=== PATIENT | female | born 1955 | race Two or more races ===

== ENCOUNTER 2017-10-17 11:41 | Outpatient (CLI) | payer OTHER ==
[~2017-10-17 11:41] MED LIST: ADULT ASPIRIN81 MG; ANTIVERT25 M1 PO; ASA; ASA81 MG; ASPIR 8181 MG; ATACAND HCT 11 UDTA1 PO; CATAFLAM50 MG PO; ENALAPRIL MALEA10 MG; ENALAPRIL-HCTZ1 TAB; FLEXERIL; FLEXERIL10 MG PO; IOPHEN DM-100 MG/5 M PO; KETO10TA2 PO; LEVSIN0.125 MG PO; MEDROLPACK PO; NASONEX17 GM NS; NEURONTIN600 MG; NEURONTIN800 MG; NORFLEX100MG PO; ORPH100T PO; PLAVIX75 MG; PRILOSEC20 MG; PROTONIX40 MG PO; RELAFEN500 MG PO; TIROSINT25 MCG; TOPROL XL50 M1; TRAMADOL HCL-AP1 TAB PO; TRENTAL; VASOTEC10 MG; ZANTAC; ZANTAC300 MG PO; ZITHROMAX500 MG PO; [UNRECOGNIZED DRUG - OTHER]
== END 2017-10-17 15:32 | disposition home or self-care (01) ==
LOC: MRI 11:41
DX: R51 Headache (principal); G50.1 Atypical facial pain
CPT/HCPCS: 70551

== ENCOUNTER 2018-05-03 07:38 | Emergency (ER) | payer OTHER ==
[~2018-05-03] VITALS: Ht 149.9 cm; Wt 81.6 kg
[2018-05-03] MEDS ORDERED: INTESTINEX680 M1 PO (12:28)
[2018-05-03] MEDS ORDERED: NORFLEX100MG PO (12:47)
[2018-05-03] MEDS ORDERED: ULTRAM50 MG PO (12:47)
== END 2018-05-03 13:07 | disposition home or self-care (01) ==
LOC: ER 07:38
DX: K52.9 Noninfective gastroenteritis and colitis, unspecified (principal); M54.89 Other dorsalgia

== ENCOUNTER → 2018-07-04 | Outpatient (CLI) | payer OTHER ==
[~2018-07-04] MED LIST changes: +INTESTINEX680 M1 PO; +ULTRAM50 MG PO
== END | disposition home or self-care (01) ==
LOC: NUCLEAR 10:00
DX: I83.892 Varicose veins of left lower extremity with other complications (principal); I80.232 Phlebitis and thrombophlebitis of left tibial vein

== ENCOUNTER 2018-07-25 08:05 | Outpatient (CLI) | payer OTHER | END 2018-07-25 08:09 | disposition home or self-care (01) | LOC: MAMO-SONO 08:05 | DX: Z12.31 Encounter for screening mammogram for malignant neoplasm of breast (principal); Z87.898 Personal history of other specified conditions; N60.11 Diffuse cystic mastopathy of right breast; N60.12 Diffuse cystic mastopathy of left breast ==

== ENCOUNTER 2019-01-04 09:39 | Emergency (ER) | payer OTHER ==
[~2019-01-04] VITALS: Ht 149.9 cm; Wt 82.6 kg
[2019-01-04] MEDS ORDERED: INTESTINEX680 M1 PO (18:54)
[2019-01-04] MEDS ORDERED: PEPCID AC20 MG PO (18:54)
[2019-01-04] MEDS ORDERED: LEVSIN/SL0.125 MG SL (18:54)
[2019-01-04] MEDS ORDERED: FLAGYL500MG PO (18:54)
[2019-01-04] MEDS ORDERED: KETO10TA2 PO (18:54)
[2019-01-04] MEDS ORDERED: CIPRO500 MG PO (18:54)
== END 2019-01-04 19:31 ==
LOC: ER 09:39
DX: K57.32 Diverticulitis of large intestine without perforation or abscess without bleeding (principal); R10.30 Lower abdominal pain, unspecified

== ENCOUNTER 2019-01-09 09:57 | Outpatient (CLI) | payer OTHER ==
[~2019-01-09 09:57] MED LIST changes: +CIPRO500 MG PO; +FLAGYL500MG PO; +LEVSIN/SL0.125 MG SL; +PEPCID AC20 MG PO
== END 2019-01-09 10:57 | disposition home or self-care (01) ==
LOC: SONOGRAMA 09:57
DX: E03.8 Other specified hypothyroidism (principal); E04.2 Nontoxic multinodular goiter

== ENCOUNTER 2019-07-19 10:48 | Outpatient (CLI) | payer OTHER | END 2019-07-19 11:57 | disposition home or self-care (01) | LOC: MRI 10:48 | DX: M46.47 Discitis, unspecified, lumbosacral region (principal) | CPT/HCPCS: 72148 ==

== ENCOUNTER 2019-08-01 10:09 | Outpatient (CLI) | payer OTHER | END 2019-08-01 11:00 | disposition home or self-care (01) | LOC: MAMO-SONO 10:09 | DX: Z12.31 Encounter for screening mammogram for malignant neoplasm of breast (principal); Z87.898 Personal history of other specified conditions; N63.11 Unspecified lump in the right breast, upper outer quadrant ==

== ENCOUNTER 2019-08-12 11:26 | Emergency (ER) | payer OTHER ==
[~2019-08-12] VITALS: Ht 149.9 cm; Wt 81.6 kg
[2019-08-12] MEDS ORDERED: XARELTO10 MG (12:31)
== END 2019-08-12 17:49 | disposition home or self-care (01) ==
LOC: ER 11:26
DX: M54.41 Lumbago with sciatica, right side (principal); M54.42 Lumbago with sciatica, left side

== ENCOUNTER 2020-01-16 12:08 | Outpatient (CLI) | payer OTHER ==
[~2020-01-16 12:08] MED LIST changes: +XARELTO10 MG
== END 2020-01-16 12:33 | disposition home or self-care (01) ==
LOC: NUCLEAR 12:08
PROVIDERS: ATTEND Physical Medicine & Rehabilitation
DX: M81.0 Age-related osteoporosis without current pathological fracture (principal)

== ENCOUNTER 2020-03-09 07:25 | Emergency (ER) | payer OTHER ==
[~2020-03-09] VITALS: Ht 147.3 cm; Wt 82.6 kg
== END 2020-03-09 17:08 | disposition home or self-care (01) ==
LOC: ER 07:25
DX: K57.90 Diverticulosis of intestine, part unspecified, without perforation or abscess without bleeding (principal); K52.9 Noninfective gastroenteritis and colitis, unspecified

== ENCOUNTER 2020-04-04 06:51 | Day surgery (SDC) | payer OTHER | END 2020-04-04 10:55 | disposition home or self-care (01) | LOC: AMB-ENDOS 06:51 | PROVIDERS: ATTEND Colon & Rectal Surgery | DX: K62.89 Other specified diseases of anus and rectum (principal); K64.1 Second degree hemorrhoids; Z20.828 Contact with and (suspected) exposure to other viral communicable diseases ==

== ENCOUNTER → 2020-09-24 | Outpatient (CLI) | payer OTHER ==
[~2020-09-24] MED LIST changes: +CELECOXIB200 MG PO; +PERCOCET 5-3251 EACH PO; +SKELAGESIC PO; +SKELAXIN800 MG PO
== END | disposition home or self-care (01) ==
LOC: MAMO-SONO 09:15
PROVIDERS: ATTEND Specialist
DX: Z12.31 Encounter for screening mammogram for malignant neoplasm of breast (principal); N60.11 Diffuse cystic mastopathy of right breast; N60.12 Diffuse cystic mastopathy of left breast; Z87.898 Personal history of other specified conditions

== ENCOUNTER 2020-10-07 07:42 | Outpatient (CLI) | payer OTHER ==
[~2020-10-07 07:42] MED LIST changes: -CELECOXIB200 MG PO; -PERCOCET 5-3251 EACH PO; -SKELAGESIC PO; -SKELAXIN800 MG PO
== END 2020-10-07 07:43 | disposition home or self-care (01) ==
LOC: NUCLEAR 07:42
PROVIDERS: ATTEND Internal Medicine Cardiovascular Disease
DX: I10 Essential (primary) hypertension (principal); J44.9 Chronic obstructive pulmonary disease, unspecified; R07.89 Other chest pain
CPT/HCPCS: 78452; 93017; A9500; J0153

== ENCOUNTER 2020-10-16 11:20 | Emergency (ER) | payer OTHER ==
[~2020-10-16] VITALS: Ht 149.9 cm; Wt 81.6 kg
[2020-10-16] MEDS ORDERED: PERCOCET 5-3251 EACH PO (16:33)
[2020-10-16] MEDS ORDERED: SKELAXIN800 MG PO (16:33)
[2020-10-16] MEDS ORDERED: CELECOXIB200 MG PO (16:33)
[2020-10-16] MEDS ORDERED: SKELAGESIC PO (16:38)
== END 2020-10-16 16:43 | disposition home or self-care (01) ==
LOC: ER 11:20
DX: M62.830 Muscle spasm of back (principal); Z98.890 Other specified postprocedural states

== ENCOUNTER 2021-01-09 09:24 | Emergency (ER) | payer OTHER ==
[~2021-01-09] VITALS: Ht 149.9 cm; Wt 81.6 kg
[~2021-01-09 09:24] MED LIST changes: +CELECOXIB200 MG PO; +PERCOCET 5-3251 EACH PO; +SKELAGESIC PO; +SKELAXIN800 MG PO
[2021-01-09] MEDS ORDERED: HYDROCORTISONE30 G4 TOP (09:38)
[2021-01-09] MEDS ORDERED: XARELTO20 M1 PO (09:39)
[2021-01-09] MEDS ORDERED: METOPROLOL SUCC25 MG PO (09:39)
[2021-01-09] MEDS ORDERED: ATORVASTATIN CA20 MG PO (09:39)
[2021-01-09] MEDS ORDERED: ENALAPRIL MALEA10 MG PO (09:39)
[2021-01-09] MEDS ORDERED: METHYLPREDNISOLO4 M1 PO (09:39)
[2021-01-09] MEDS ORDERED: PERCOCET 5-3251 EACH PO (16:18)
[2021-01-09] MEDS ORDERED: CELEBREX200MG PO (16:18)
== END 2021-01-09 17:20 | disposition home or self-care (01) ==
LOC: ER 09:24
DX: S33.5XXA Sprain of ligaments of lumbar spine, initial encounter (principal); S23.3XXA Sprain of ligaments of thoracic spine, initial encounter; W01.198A Fall on same level from slipping, tripping and stumbling with subsequent striking against other object, initial encounter; Y93.89 Activity, other specified; Y92.018 Other place in single-family (private) house as the place of occurrence of the external cause; Y99.8 Other external cause status; I10 Essential (primary) hypertension

== ENCOUNTER 2021-03-02 06:07 | Emergency (ER) | payer OTHER ==
[~2021-03-02] VITALS: Ht 149.9 cm; Wt 85.3 kg
[~2021-03-02 06:07] MED LIST changes: +ATORVASTATIN CA20 MG PO; +CELEBREX200MG PO; +ENALAPRIL MALEA10 MG PO; +HYDROCORTISONE30 G4 TOP; +METHYLPREDNISOLO4 M1 PO; +METOPROLOL SUCC25 MG PO; +XARELTO20 M1 PO
== END 2021-03-02 17:33 | disposition home or self-care (01) ==
LOC: ER 06:07
DX: K57.90 Diverticulosis of intestine, part unspecified, without perforation or abscess without bleeding (principal); R10.32 Left lower quadrant pain

== ENCOUNTER 2021-08-19 07:51 | Outpatient (CLI) | payer OTHER | END 2021-08-19 07:56 | disposition home or self-care (01) | LOC: RAD 07:51 | PROVIDERS: ATTEND Internal Medicine Pulmonary Disease | DX: J45.41 Moderate persistent asthma with (acute) exacerbation (principal); R06.02 Shortness of breath; E66.01 Morbid (severe) obesity due to excess calories; Z86.718 Personal history of other venous thrombosis and embolism ==

== ENCOUNTER 2021-10-01 09:04 | Outpatient (CLI) | payer OTHER | END 2021-10-01 09:05 | disposition home or self-care (01) | LOC: MAMO-SONO 09:04 | PROVIDERS: ATTEND Specialist | DX: N60.19 Diffuse cystic mastopathy of unspecified breast (principal) ==

== ENCOUNTER 2021-10-19 11:09 | Outpatient (CLI) | payer OTHER | END 2021-10-19 11:15 | disposition home or self-care (01) | LOC: MRI 11:09 | PROVIDERS: ATTEND Internal Medicine | DX: M51.87 Other intervertebral disc disorders, lumbosacral region (principal) | CPT/HCPCS: 72148 ==

== ENCOUNTER 2021-12-08 10:45 | Outpatient (CLI) | payer OTHER | END 2021-12-08 10:46 | disposition home or self-care (01) | LOC: NUCLEAR 10:45 | PROVIDERS: ATTEND Specialist | DX: M81.0 Age-related osteoporosis without current pathological fracture (principal) ==

== ENCOUNTER 2022-01-12 10:00 | Emergency (ER) | payer OTHER ==
[~2022-01-12] VITALS: Ht 149.9 cm; Wt 81.6 kg
[2022-01-12] MEDS ORDERED: VASOTEC20 M1 PO (10:49)
[2022-01-12] MEDS ORDERED: TOPROL XL25 M1 (10:50)
[2022-01-12] MEDS ORDERED: MS CONTIN15 M1 PO (16:07)
== END 2022-01-12 16:13 | disposition home or self-care (01) ==
LOC: ER 10:00
DX: M51.36 Other intervertebral disc degeneration, lumbar region (principal); M54.9 Dorsalgia, unspecified; I10 Essential (primary) hypertension; M48.061 Spinal stenosis, lumbar region without neurogenic claudication; M48.02 Spinal stenosis, cervical region
CPT/HCPCS: 72141; 72148

== ENCOUNTER → 2022-07-14 | Outpatient (CLI) | payer OTHER ==
[~2022-07-14] MED LIST changes: +MS CONTIN15 M1 PO; +TOPROL XL25 M1; +VASOTEC20 M1 PO
== END | disposition home or self-care (01) ==
LOC: RAD 10:59
PROVIDERS: ATTEND Orthopaedic Surgery Orthopaedic Surgery of the Spine
DX: R07.9 Chest pain, unspecified (principal)

== ENCOUNTER 2022-07-23 07:15 | Inpatient (IN) | payer OTHER ==
[~2022-07-23] VITALS: Ht 149.9 cm; Wt 81.6 kg
[2022-07-23] MEDS ORDERED: LIPITOR20 MG PO (08:57)
[2022-07-23] MEDS ORDERED: XARELTO20 MG PO (08:57)
[2022-07-29] MEDS ORDERED: METHYLPREDNISOLO4 MG (13:35)
[2022-07-29] MEDS ORDERED: GABAPENTIN100 M2 (13:35)
[2022-07-29] MEDS ORDERED: MEDROLPACK PO (13:45)
[2022-07-29] MEDS ORDERED: PERCOCET 5-3251 EACH PO (13:45)
[2022-07-29] MEDS ORDERED: NEURONTIN800 MG PO (13:46)
[2022-07-29] MEDS ORDERED: COLACE100 MG PO (13:46)
[2022-07-29] MEDS ORDERED: AMOX-CLAV 875-1 EACH PO (13:46)
== END 2022-07-31 09:48 | disposition home or self-care (01) | DRG 455 ==
LOC: O/R 07-29 06:26 → SURH 07-29 07:15 → PED 07-29 21:50
PROVIDERS: ADMIT Orthopaedic Surgery Orthopaedic Surgery of the Spine; ATTEND Orthopaedic Surgery Orthopaedic Surgery of the Spine
PROC: 0SG0071 Fusion of Lumbar Vertebral Joint with Autologous Tissue Substitute, Posterior Approach, Posterior Column, Open Approach (ICD-10-PCS; 2022-07-29)
PROC: 0ST20ZZ Resection of Lumbar Vertebral Disc, Open Approach (ICD-10-PCS; 2022-07-29)
PROC: 07DR0ZZ Extraction of Iliac Bone Marrow, Open Approach (ICD-10-PCS; 2022-07-29)
PROC: XRGB0R7 Fusion of Lumbar Vertebral Joint using Custom-Made Anatomically Designed Interbody Fusion Device, Open Approach, New Technology Group 7 (ICD-10-PCS; principal; 2022-07-29 18:15)
DX: M48.062 Spinal stenosis, lumbar region with neurogenic claudication (principal); M41.56 Other secondary scoliosis, lumbar region; M43.16 Spondylolisthesis, lumbar region; I10 Essential (primary) hypertension

== ENCOUNTER 2022-08-26 11:06 | Outpatient (CLI) | payer OTHER ==
[~2022-08-26 11:06] MED LIST changes: +AMOX-CLAV 875-1 EACH PO; +COLACE100 MG PO; +GABAPENTIN100 M2; +LIPITOR20 MG PO; +METHYLPREDNISOLO4 MG; +NEURONTIN800 MG PO; +XARELTO20 MG PO
== END 2022-08-26 11:12 | disposition home or self-care (01) ==
LOC: RAD 11:06
PROVIDERS: ATTEND Orthopaedic Surgery Orthopaedic Surgery of the Spine
DX: Z98.1 Arthrodesis status (principal)

== ENCOUNTER 2022-10-20 12:35 | Outpatient (CLI) | payer OTHER | END 2022-10-20 12:38 | disposition home or self-care (01) | LOC: RAD 12:35 | PROVIDERS: ATTEND Orthopaedic Surgery Orthopaedic Surgery of the Spine | DX: Z98.1 Arthrodesis status (principal) ==

== ENCOUNTER 2022-12-21 08:51 | Outpatient (CLI) | payer OTHER | END 2022-12-21 08:54 | disposition home or self-care (01) | LOC: RAD 08:51 | PROVIDERS: ATTEND Orthopaedic Surgery Orthopaedic Surgery of the Spine | DX: Z98.1 Arthrodesis status (principal) ==

== ENCOUNTER 2023-02-02 08:33 | Outpatient (CLI) | payer OTHER | END 2023-02-02 08:59 | disposition home or self-care (01) | LOC: MRI 08:33 | PROVIDERS: ATTEND Orthopaedic Surgery Orthopaedic Surgery of the Spine | DX: M50.30 Other cervical disc degeneration, unspecified cervical region (principal); Z98.1 Arthrodesis status; N60.11 Diffuse cystic mastopathy of right breast; N60.12 Diffuse cystic mastopathy of left breast; Z12.31 Encounter for screening mammogram for malignant neoplasm of breast | CPT/HCPCS: 72141 ==

== ENCOUNTER 2023-05-04 08:54 | Outpatient (CLI) | payer OTHER | END 2023-05-04 09:10 | disposition home or self-care (01) | LOC: MAMO-SONO 08:54 | PROVIDERS: ATTEND Student in an Organized Health Care Education/Training Program | DX: R92.8 Other abnormal and inconclusive findings on diagnostic imaging of breast (principal) ==

== ENCOUNTER 2023-12-26 11:55 | Outpatient (CLI) | payer OTHER | END 2023-12-26 11:57 | disposition home or self-care (01) | LOC: SONOGRAMA 11:55 | PROVIDERS: ATTEND Internal Medicine | DX: E03.8 Other specified hypothyroidism (principal) ==

== ENCOUNTER 2023-12-26 12:52 | Outpatient (CLI) | payer OTHER | END 2023-12-26 12:53 | disposition home or self-care (01) | LOC: NUCLEAR 12:52 | PROVIDERS: ATTEND Internal Medicine | DX: M81.0 Age-related osteoporosis without current pathological fracture (principal) ==

== ENCOUNTER 2024-03-15 07:41 | Outpatient (CLI) | payer OTHER | END 2024-03-15 07:49 | disposition home or self-care (01) | LOC: TOM 07:41 | PROVIDERS: ATTEND Physical Medicine & Rehabilitation | DX: M54.17 Radiculopathy, lumbosacral region (principal) | CPT/HCPCS: 72133; Q9965 ==

== ENCOUNTER 2024-05-24 07:45 | Emergency (ER) | payer OTHER ==
[~2024-05-24] VITALS: Ht 149.9 cm; Wt 82.6 kg
[2024-05-24] MEDS ORDERED: KETOROLAC TROMETHAMINE 60 MG VIAL IM ONE (09:00)
== END 2024-05-24 10:09 | disposition home or self-care (01) ==
LOC: ER 07:48
DX: M25.569 Pain in unspecified knee (principal)
CPT/HCPCS: 73560; 96372; 99283; J1885

== ENCOUNTER 2024-06-18 14:54 | Outpatient (CLI) | payer OTHER | END 2024-06-18 15:05 | disposition home or self-care (01) | LOC: MRI 14:54 | PROVIDERS: ATTEND Orthopaedic Surgery | DX: M25.561 Pain in right knee (principal); M23.91 Unspecified internal derangement of right knee | CPT/HCPCS: 73721 ==

== ENCOUNTER 2025-04-03 10:35 | Outpatient (CLI) | payer OTHER | END 2025-04-03 10:37 | disposition home or self-care (01) | LOC: MAMO-SONO 10:35 | PROVIDERS: ATTEND Internal Medicine | DX: N64.4 Mastodynia (principal); R92.0 Mammographic microcalcification found on diagnostic imaging of breast; Z12.31 Encounter for screening mammogram for malignant neoplasm of breast ==